=== PATIENT | male | born 1995 | race African-American/Black ===

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

== ENCOUNTER → 2017-01-31 | Day surgery (SDC) | payer OTHER ==
[~2017-01-31] MED LIST changes: +ACETAMINOPHEN/HYDROcodone 325 MG/5 MG TAB ONE; -BENA25CA2 PO; +BUPIVACAINE/EPINEPHRINE 0.25% PF 30 ML VIAL ONE; +CLINDAMYCIN PHOS 600 MG/4 ML VIAL ONE; +CRUTMIS25; +HYDR-3516 PO; +IBUP1TAB5 PO; +MIDAZOLAM HCL 2 MG/2 ML VIAL ONE; +ONDANSETRON HCL 4 MG/2 ML VIAL IV PUSH ONE; -PRED20 PO; +PROPOFOL 200 MG/20 ML AMP IV ONE; +SODIUM CHLORIDE 0.9% SOLN 100 ML BAG IV ONE
--- NOTE | 2017-01-31 13:19 | PD.OP ---
cc: Jefferson Falk MD Operative Report Date of Surgery: Jan 31, 2017 Preoperative Diagnosis: Status post internal fixation right ankle for fracture dislocation. Retained hardware across right ankle syndesmotic joint Postoperative Diagnosis: Same Procedure: Removal of deep hardware of the right ankle, 2 syndesmotic screws Anesthesia: Gen. Surgeon: Jefferson Falk Auto Striper(s): Staff Operation and Findings: EBL: Minimal cc INDICATION: This patient is a 21-year-old male who is approximately 3-1/2 months status post internal fixation of a comminuted right fibular fracture associated with a syndesmotic tear and an unstable ankle. He had syndesmotic screws placed. He now presents for syndesmotic screw removal PROCEDURE: The patient brought to the operating room and anesthetized in the supine position. The right leg was visualized under fluoroscopy. Antibiotics were given within an one hour time window and a timeout was done. Local anesthesia was utilized. Under fluoroscopy, a lateral incision was made. The syndesmotic screws were exposed. They were approached removing the soft tissue. A screw bus driver/monitor was utilized and each screw was removed in a retrograde fashion. The wound was irrigated copiously. It was closed with interrupted 3-0 nylon sutures. Sterile dressing was applied and the patient was awakened and taken to the recovery room in satisfactory condition. The sponge count, needle count and instrument counts were all correct FINDINGS: The syndesmotic screws were removed without difficulty. The rest the hardware appeared be very satisfactory Jefferson Falk MD Jan 31, 2017 13:19
== END | disposition home or self-care (01) ==
LOC: ESDC 11:12
PROVIDERS: ATTEND Orthopaedic Surgery Orthopaedic Surgery of the Spine
DX: Z47.2 Encounter for removal of internal fixation device (principal)
CPT/HCPCS: 01480; 20680; 73600; 76000; J2250; J2405; J3010